=== PATIENT | male | born 1960 | race Caucasian/White ===

== ENCOUNTER 2023-07-20 10:46 | Outpatient (CLI) | payer BC | END 2023-07-20 10:47 | disposition home or self-care (01) | LOC: CSHRAD 10:46 | PROVIDERS: ATTEND Family Medicine | DX: M54.40 Lumbago with sciatica, unspecified side (principal); M25.512 Pain in left shoulder; M47.816 Spondylosis without myelopathy or radiculopathy, lumbar region; R19.8 Other specified symptoms and signs involving the digestive system and abdomen | CPT/HCPCS: 72100 ==